=== PATIENT | male | born 1990 | race Caucasian/White ===

== ENCOUNTER 2024-02-07 11:40 | Emergency (ER) | payer OTHER, SELFPAY ==
[2024-02-07 11:49] VITALS: BP 189/114; PULSE 81; RESP 20; TEMP 36.9; O2SAT 98
[2024-02-07 11:59] VITALS: BP 162/92
--- NOTE | 2024-02-07 12:11 | ED.SKABFB ---
HPI - Skin/Abscess/Foreign Bdy General Chief complaint: Skin/Abscess/Foreign Body Stated complaint: rash Time Seen by Provider: 02/07/24 12:00 Source: patient and RN notes reviewed Mode of arrival: ambulatory Limitations: no limitations History of Present Illness HPI narrative: Patient presents today complaining of pruritic rash to the lower abdomen since yesterday. States he was out in [place], but denies any known exposure to irritants. No new products in the home, medications, foods, animal exposures. No recent illness. He has tried no [id number] treatment prior to arrival. Related Data Home Medications Medication Instructions Recorded Confirmed metoprolol tartrate 25 mg tablet 25 mg PO BID 02/07/24 02/07/24 omeprazole magnesium 20 mg 20 mg PO BID 02/07/24 02/07/24 tablet,delayed release (Prilosec OTC) Allergies Allergy/AdvReac Type Severity Reaction Status Date / Time No Known Allergies Allergy Verified 02/07/24 11:41 Review of Systems Review of Systems: CONSTITUTIONAL: Denies body aches, fever, chills, or sweats. EYES: Denies visual changes, redness, or discharge. ENT: Denies rhinorrhea, congestion, sore throat, or otalgia. CARDIOVASCULAR: Denies chest pain, palpitations, or edema. RESPIRATORY: Denies cough or dyspnea. GASTROINTESTINAL: Denies abdominal pain, nausea, vomiting, or diarrhea. GENITOURINARY: Denies dysuria or hematuria. SKIN: + pruritic rash to abdomen MUSCULOSKELETAL: Denies back pain, joint pain, or myalgia. NEUROLOGIC: Denies headache, numbness, tingling, or weakness. PSYCH: Denies depression or anxiety. [facility] [place] Past Medical History Medical History (Updated 02/07/24 @ 12:17 by Briana Hauser, [facility], ) Hypertension Comments At time of signature, I have reviewed and agree with nursing past medical, surgical, social and family history unless otherwise noted. Please see nursing chart for further information. There is no relevant family history pertinent to the presenting complaint Exam Narrative: GENERAL: Well-appearing, well-nourished, and in no acute distress. HEAD: Normocephalic, atraumatic. EYES: EOMI. No redness or drainage. Conjunctivae normal. ENT: Mucous membranes pink and moist. NECK: Normal AROM. CHEST: No respiratory distress. EXTREMITIES: Normal range of motion. No edema. SKIN: Warm, dry. Capillary refill normal. Normal skin turgor. Widespread erythematous raised rash to the low abdomen. No induration or drainage. NEURO: No focal deficits. Alert and oriented x3. Gait steady. PSYCH: Normal affect. No signs of depression or anxiety. Course Course Level of Care: Express Care Visit Vital Signs Vital signs: Vital Signs Temperature 98.4 F 02/07/24 11:49 Pulse Rate 81 02/07/24 11:49 Respiratory Rate 20 02/07/24 11:49 Blood Pressure 189/114 H 02/07/24 11:49 Pulse Oximetry 98 02/07/24 11:49 Oxygen Delivery Room Air 02/07/24 11:49 Temperature 98.4 F 02/07/24 11:49 Pulse Rate 81 02/07/24 11:49 Respiratory Rate 20 02/07/24 11:49 Blood Pressure 162/92 H 02/07/24 11:59 Pulse Oximetry 98 02/07/24 11:49 Oxygen Delivery Room Air 02/07/24 11:49 Reviewed MDM - Skin/Abscess/Foreign Bdy MDM Narrative Medical decision making narrative: Patient's symptoms appear to be somewhat urticarial. Will treat with short course of prednisone. Instructed to follow-up with PCP if symptoms do not improve. Patient agrees with plan. Anticipatory guidance given. Differential Diagnosis Differential diagnosis: Likely abscess of skin or subcutaneous tissue, viral exanthem, dermatophytosis, urticaria, herpes zoster, cellulitis, insect bites, impetigo and contact dermatitis Critical Care Time Critical Care Time Critical Care Time: No Discharge Plan Discharge Clinical Impression: Rash Patient Disposition: Home, Self-Care Condition: Stable Instructions: Acute Rash (ED) Additional Instru
== END 2024-02-07 12:14 | disposition home or self-care (01) ==
PROVIDERS: Emergency Provider Nurse Practitioner
DX: R21 Rash and other nonspecific skin eruption (principal); I10 Essential (primary) hypertension
CPT/HCPCS: 99203; G0463